=== PATIENT | male | born 1985 | race African-American/Black ===

== ENCOUNTER 2019-02-28 07:51 | Emergency (ER) | payer MEDICAID ==
[~2019-02-28] VITALS: Ht 170.2 cm; Wt 65.0 kg
[2019-02-28 09:25] LABS: CLARITY URINE CLEAR (CLEAR); COLOR URINE YELLOW (YELLOW); KETONES URINE NEGATIVE (NEGATIVE); LEUKOCYTE ESTERASE URINE NEGATIVE (NEGATIVE); NITRITE URINE NEGATIVE (NEGATIVE); OCCULT BLOOD URINE NEGATIVE (NEGATIVE); PH URINE 7.5 (4.5-8.0); PROTEIN URINE NEGATIVE (NEGATIVE); SPECIFIC GRAVITY URINE 1.006 (1.005-1.030); UROBILINOGEN URINE 0.2 E.U./dL (0.2-1.0)
[2019-02-28] MEDS ORDERED: AZITHROMYCIN 500 MG TABLET PO ONE (10:15)
[2019-02-28] MEDS ORDERED: CEFTRIAXONE SODIUM 250 MG/VIAL IM ONE (10:15)
[2019-02-28] MEDS ORDERED: LIDOCAINE HCL 1% 20ML VIAL (Pyxis) INJ INFIL ONE (10:30)
[2019-02-28 10:48] VITALS: BP 138/87
[2019-03-03 09:06] LABS: NEISSERIA GONORRHOEAE NAA Negative (Negative)
[2019-03-04 04:07] LABS: CHLAMYDIA TRACHOMATIS NAA Positive (Negative)
== END 2019-02-28 10:49 | disposition home or self-care (01) ==
LOC: ER 07:51
DX: A55 Chlamydial lymphogranuloma (venereum) (principal)
CPT/HCPCS: 81003; 87491; 87591; 96372; 99283; J0696; J3490